=== PATIENT | male | born 1960 | race Caucasian/White ===

== ENCOUNTER 2017-12-14 06:48 | Emergency (ER) | payer SELFPAY | END 2017-12-14 08:43 | disposition home or self-care (01) | PROVIDERS: Emergency Provider Emergency Medicine; Visit Provider Emergency Medicine | DX: K12.2 Cellulitis and abscess of mouth (principal) | CPT/HCPCS: 70360; 71020; 71046; 80053; 85025; 87880; 96365; 96375; 99058; 99284; J1200; J2930 ==